=== PATIENT | male | born 1970 | race Caucasian/White ===

== ENCOUNTER → 2021-01-05 | Outpatient (CLI) | payer OTHER ==
--- NOTE | 2021-01-05 10:39 | RAD ---
EXAMINATION: CT ABDOMEN+PELVIS WO (CT ABDOMEN/PELVIS WITHOUT IV CONTRAST) CLINICAL HISTORY: Renal stones TECHNIQUE: Non-IV contrast imaging of the abdomen and pelvis was performed using standard technique, scanning from just above the dome of the diaphragm to the symphysis pubis. Unenhanced imaging is naidu ited for the evaluation of some intra-abdominal and pelvic pathology. CT Dose Reduction Employed: One or more of the following individualized dose reduction techniques wer e utilized for this examination: 1. Automated exposure control 2. Adjustment of the mA and/or kV ac cording to patient size 3. Use of iterative reconstruction technique. COMPARISON: None FINDINGS: Partially visualized heart and lung bases unremarkable. Liver, nondistended gallbladder, pancreas, spleen, and adrenal glands unremarkable. 3 mm nonobstructive calculi in the midpole the right kidney and mid to upper pole of the left kidney. Small calcified cortical defect in the mid to lower pole of the left kidney, nonspecific but possibl y related to remote infarct. No hydronephrosis. No distal urinary calculi visualized. Mildly filled urinary bladder. Pelvic phleboliths and punctate prostatic calcifications. No dilated bowel. Stool throughout the colon. Appendix not definitively visualized. Moderately disten ded stomach. Arterial atherosclerotic calcification without aneurysm. No lymphadenopathy. Transitional lumbosacral vertebra, presumably lumbarization of S1. L2-3 degenerative disc disease. Bi lateral vasectomy clips. IMPRESSION: Bilateral nonobstructive nephrolithiasis. 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 Electronically signed by: Eladio Hunter DO (01/05/2021 10:36 AM) [id number]
== END ==
LOC: CT 08:39
PROVIDERS: ATTEND Specialist
DX: N20.0 Calculus of kidney (principal)
CPT/HCPCS: 74176